=== PATIENT | female | born 1945 | race African-American/Black ===

== ENCOUNTER 2018-01-23 03:37 | Emergency (ER) | payer OTHER ==
[~2018-01-23] VITALS: Ht 154.9 cm; Wt 89.4 kg
--- NOTE | ~2018-01-23 | EKG ---
[place] [address] [facility] [place] [address] ELECTROCARDIOGRAM REPORT Name: MICHAEL LOUIS Room [facility]: [id number] Admission: 01/23/18 Attend Phys: Discharge: 01/23/18 Date of : 45 Report #: [id number] THIS REPORT FOR: //name// [facility] ED Test Date: 2018-01-23 Test Time: 05:17:28 Pat Name: MICHAEL LOUIS Department: Room: Gender: F Duty Manager: BOUBACAR : 1945 Requested By: Chanel Duarte Order Number: [id number] MD: Michelet Gordillo Measurements Intervals [place] Rate: 65 P: 13 [place]: 239 QRS: 4 QRSD: 100 T: 52 QT: 442 QTc: 460 Interpretive Statements Sinus rhythm Prolonged [place] interval Compared to ECG 02/26/2009 04:22:32 No significant change was found Electronically Signed On 01-23-2018 10:40:13 REGISTRATION REPRESENTATIVE by Michelet Gordillo [email or web address] <ELECTRONICALLY SIGNED> By: Michelet Gordillo MD, [facility] 01/23/18 1040 0517 6 Michelet Gordillo MD, FACC /EPI
[~2018-01-23 03:37] MED LIST: ADULT LOW DOSE81 MG PO; ADVAIR HFA115 MCG/21 INH; AMLODIPINE-BEN1 EACH PO; CITRATE OF MAG296 ML PO; FLONASE 0.05%50 MCG NASAL; NORCO 5-325 TA1 EACH PO; PROTONIX40 MG PO; SINGULAIR 10 MG10 M1 PO; TRIAMTERENE-HC1 EAC3 PO; VENTOLIN HFA 1818 GM INH
[2018-01-23] MEDS ORDERED: CHANTIX1 MG PO (03:50)
[2018-01-23] MEDS ORDERED: LIPITOR 20 MG T20 M1 PO (03:50)
[2018-01-23] MEDS ORDERED: VITAMIN D35000 UNIT PO (03:51)
[2018-01-23 06:12] LABS: HEMATOCRIT 33.3 % (37.0-47.0); HEMOGLOBIN 10.7 gm/dL (12.0-15.0); MCHC 32.1 g/dL (28.0-37.0); PLATELET COUNT 269 thou/uL (150-400); RBC 4.12 mil/uL (4.20-5.00); RDW 16.1 % (10.5-14.5); WBC 6.8 thou/uL (4.0-11.0)
[2018-01-23 06:22] LABS: ANION GAP 11 mmol/L (7-16); BUN 27 mg/dL (7-18); CALCIUM 9.7 mg/dL (8.5-10.1); CHLORIDE 101 mmol/L (98-107); CO2 27 mmol/L (21-32); CREATININE 0.9 mg/dL (0.6-1.0); GLUCOSE 105 mg/dL (74-106); POTASSIUM 3.5 mmol/L (3.5-5.1); SODIUM 139 mmol/L (136-145)
[2018-01-23 06:33] LABS: TROPONIN-I <0.06 ng/mL (<0.06)
[2018-01-23 07:00] LABS: ABSOLUTE NEUTROPHILS 4.5 thou/uL (1.4-8.2); PLATELET ESTIMATE NORMAL
[2018-01-23 08:40] VITALS: BP 103/62
== END 2018-01-23 08:42 | disposition home or self-care (01) ==
LOC: ER 03:37
PROVIDERS: Emergency Medicine
DX: R06.01 Orthopnea (principal); F17.210 Nicotine dependence, cigarettes, uncomplicated; I10 Essential (primary) hypertension; M19.90 Unspecified osteoarthritis, unspecified site; E78.00 Pure hypercholesterolemia, unspecified; Z90.49 Acquired absence of other specified parts of digestive tract; Z95.5 Presence of coronary angioplasty implant and graft